=== PATIENT | female | born 1970 | race Caucasian/White ===

== ENCOUNTER 2016-10-13 19:25 | Emergency (ER) | payer MEDICAID ==
[2016-10-13 19:36] VITALS: TEMP 97.9
[2016-10-13] MEDS ORDERED: NS 1,000 ML IV ONE (20:19)
[2016-10-13] MEDS ORDERED: ONDANSETRON 4 MG/2 ML VIAL IVP ONE (20:19)
[2016-10-13] MEDS ORDERED: HYDROmorphONE/DILAUDID 1 MG/ML SYR IVP ONE (20:19)
--- NOTE | 2016-10-13 20:24 | EDPHY ---
H & P Stated Complaint: Nausea/vomiting, abdo pain since for months, getting worse Source: Patient Exam Limitations: No limitations - Personal History LMP (Females 10-55): 8-14 Days Ago Current Tetanus Diphtheria and Acellular Pertussis (TDAP): Unsure - Medical/Surgical History Hx Asthma: No Hx Chronic Respiratory Disease: No Hx Diabetes: No Hx Cardiac Disease: No Hx Renal Disease: No Hx Cirrhosis: No Hx Alcoholism: No Hx HIV/AIDS: No Hx Splenectomy or Spleen Trauma: No Other PMH: c section, ortho; B eye sx; tim; r knee;. idiopathic anaphylaxis - Family History Significant Family History: No pertinent family hx - Social History Smoking Status: Never smoked Alcohol Use: Sober Drug Use: None Time Seen by Provider: 10/13/16 20:09 HPI/ROS: CHIEF COMPLAINT: Abdominal pain HISTORY OF PRESENT ILLNESS: The patient is a 46-year-old female who comes to the emergency department complaining of abdominal pain and vomiting. She states that she has had chronic nausea and abdominal pain for the last year that she and her primary thought was most likely due to an allergic reaction. She had an unexplained anaphylactic reaction about a year ago prior to the initiation of these chronic symptoms. She has been treated with Pepcid and recently added Zantac and Zyrtec. This is not improved her symptoms infected last 45 days her pain and vomiting of become worse. She states that she is vomiting bile. No blood in her stool or vomit. She states that she typically has loose bowel movements sometimes they are formed. Never constipated. She has also been taking magnesium supplements. She has not seen a furnace installer. She also states that she can see her intestines peristalsing and it looks like an alien crawling across her stomach. REVIEW OF SYSTEMS: Constitutional: denies: chills, fever, recent illness, recent injury EENTM: denies: blurred vision, double vision, nose congestion Respiratory: denies: cough, shortness of breath Cardiac: denies: chest pain, irregular heart rate, lightheadedness, palpitations Gastrointestinal/Abdominal: See HPI Genitourinary: denies: dysuria, frequency, hematuria, pain Musculoskeletal: denies: joint pain, muscle pain Skin: denies: lesions, rash, jaundice, bruising Neurological: denies: headache, numbness, paresthesia, tingling, dizziness, weakness Hematologic/Lymphatic: denies: blood clots, easy bleeding, easy bruising Immunologic/allergic: denies: HIV/AIDS, transplant EXAM: GENERAL: Well-appearing, well-nourished and in no acute distress. HEAD: Atraumatic, normocephalic. EYES: Pupils equal round and reactive to light, extraocular movements intact, sclera anicteric, conjunctiva are normal. ENT: TMs normal, nares patent, oropharynx clear without exudates. Moist mucous membranes. NECK: Normal range of motion, supple without lymphadenopathy or JVD. LUNGS: Breath sounds clear to auscultation bilaterally and equal. No wheezes rales or rhonchi. HEART: Regular rate and rhythm without murmurs, rubs or gallops. ABDOMEN: Diffuse pain primarily in both upper quadrants, no tenderness. normoactive bowel sounds. No guarding, no rebound. No masses appreciated. BACK: No CVA tenderness, no spinal tenderness, step-offs or deformities EXTREMITIES: Normal range of motion, no pitting or edema. No clubbing or cyanosis. NEUROLOGICAL: Cranial nerves II through XII grossly intact. Normal speech, normal gait. 5/5 strength, normal movement in all extremities, normal sensation PSYCH: Normal mood, normal affect. SKIN: Warm, dry, normal turgor, no visible rashes or lesions. (Delta Medley) Constitutional: Initial Vital Signs Temperature (C) 36.6 C 10/13/16 19:33 Heart Rate 95 10/13/16 19:33 Respiratory Rate 18 10/13/16 19:33 Blood Pressure 126/76 H 10/13/16 19:33 O2 Sat (%) 96 10/13/16 19:33 O2 Delivery Mode Room Air Allergies/Adverse Reactions: Latex, Natural Rubber Allergy (Verified 08/04/15 13:26) venom-honey bee [bee venom (honey bee)] Allergy (Verified 08/04/15 13:26) Home Medications: Medication Instructions Recorded EPINEPHrine [Epipen] 0.3 mg IM ONCE PRN #2 syr 04/29/15 Montelukast Sodium 05/23/15 ZyrTEC 10 mg (RX) 05/23/15 EPINEPHrine [Epipen 0.3 MG (RX)] 0.3 mg IM ONCE #2 syr 06/08/15 Famitodine 08/04/15 Norgestimate-Ethinyl Estradiol 02/02/16 [Sprintec 28 Day Tablet] Hydrocodone/APAP 5/325 [[place] 1 - 2 each PO Q4 PRN #14 tab 10/13/16 5/325] Ondansetron Odt [Zofran Odt 4 mg 4 mg PO Q4 PRN #20 tab 10/13/16 (RX)] Medical Decision Making - Diagnostics EKG Interpretation: An EKG obtained and was read and documented in trace view. Please see trace view for full reading and report. Sinus rhythm no acute ischemic changes ( Delta Medley) Imaging: Results: CT scan of the abdomen and pelvis was obtained. The results of the study are normal appearing bowel, normal appearing appendix, left-sided ovarian cyst unchanged from previous. The study was read by Dr. Fajardo. I viewed the images myself on the PACS system. (Delta Medley) ED Course/Re-evaluation: 9:50 p.m. the patient is feeling much better although she is having some itching after receiving IV contrast. We discussed her CT results. She is reassured. Her ovarian cyst is the same as previous. She does not have any lower left quadrant pain. I will treat her with Benadryl and observed. Otherwise I will refer her to gastroenterology. She is happy with this plan and declines any further workup or testing at this time. (Delta Medley) Differential Diagnosis: Partial list of the Differential diagnosis considered include but were not limited to; ureteral bowel disease, chronic abdominal pain, vomiting, dehydration ovarian cyst, and although unlikely based on the history and physical exam, I also considered obstruction, ischemia, volvulus, ovarian torsion, appendicitis, kidney stones, urinary tract infection. I discussed these differential diagnoses and the plan with the patient as well as the usual and expected course. The patient understands that the diagnosis is provisional and that in medicine we are not always correct and that further workup is often warranted. Usual and customary warnings were given. All of the patient's questions were answered. The patient was instructed to return to the emergency department should the symptoms at all worsen or return, otherwise to followup with the physician as we discussed. (Delta Medley) Other Provider: On 10/14, I received a call from the pharmacy indicating that the patient was trying to fill her rx for [place] but had recently picked up a script for 60 [place] from a different provider only 4 days ago. I reviewed her chart and this is not listed. This seems like concerning behavior so I have asked pharmacist to discontinue our prescription. Patient may return to the ED if she is concerned about this. (Onel Roberts) - Data Points Laboratory Results: Laboratory Results 10/13/16 20:10 10/13/16 20:10 Medications Given: Discontinued Medications Diphenhydramine HCl (Benadryl Injection) 50 mg IVP EDNOW ONE Stop: 10/13/16 21:48 Last Admin: 10/13/16 21:57 Dose: 50 mg Hydromorphone HCl (Dilaudid) 1 mg IVP EDNOW ONE Stop: 10/13/16 20:20 Last Admin: 10/13/16 20:30 Dose: 1 mg Sodium Chloride (Ns) 1,000 mls @ 0 mls/hr IV ONCE ONE PRN Reason: Wide Open Stop: 10/13/16 20:20 Last Admin: 10/13/16 20:20 Dose: 1,000 mls Ondansetron HCl (Zofran) 4 mg IVP EDNOW ONE Stop: 10/13/16 20:20 Last Admin: 10/13/16 20:30 Dose: 4 mg Ondansetron HCl (Zofran Odt 4 Mg Prepack#2) 1 btl TAKEHOME EDNOW ONE Stop: 10/13/16 22:50 Last Admin: 10/13/16 22:51 Dose: 1 btl Departure - Departure Disposition: Home, Routine, Self-Care Clinical Impression: Abdominal pain Qualifiers: Abdominal location: generalized Qualified Code(s): R10.84 - Generalized abdominal pain Condition: Fair Instructions: Ondansetron (By mouth), Chronic Abdominal Pain (ED) Referrals: Phoebe Hilario [Primary Care Provider] - As per Instructions Prescriptions: Hydrocodone/APAP 5/325 [[place] 5/325] 1 - 2 each PO Q4 PRN #14 tab PRN Reason: Pain, Mild Ondansetron Odt [Zofran Odt 4 mg (RX)] 4 mg PO Q4 PRN #20 tab PRN Reason: Nausea & Vomiting
[2016-10-13 20:30] LABS: % IMMATURE GRANULYOCYTES 0.8 % (0.0-1.1); ABSOLUTE IMMATURE GRANULOCYTES 0.08 10^3/uL (0.00-0.10); ADD DIFF? NO; ADD MORPH? NO; ADD SCAN? NO; ATYPICAL LYMPHOCYTE FLAG 10 (0-99); FRAGMENT RBC FLAG 0 (0-99); HEMATOCRIT 41.3 % (38.0-47.0); LEFT SHIFT FLG 10 (0-99); LIPEMIA HEMOLYSIS FLAG 90 (0-99); MEAN CELL HEMOGLOBIN 28.2 pg (27.9-34.1); MEAN CELL HEMOGLOBIN CONCENTR. 33.9 g/dL (32.4-36.7); MEAN CELL VOLUME 83.1 fL (81.5-99.8); MEAN PLATELET VOLUME 10.5 fL (8.7-11.7); PLATELET CLUMPS FLAG 10 (0-99); PLATELET COUNT 232 10^3/uL (150-400); RED BLOOD CELL COUNT 4.97 10^6/uL (4.18-5.33); RED CELL DISTRIBUTION WIDTH 14.3 % (11.5-15.2)
[2016-10-13 20:40] LABS: ALANINE AMINOTRANSFERASE 38 IU/L (9-52); ALBUMIN 4.9 g/dL (3.5-5.0); ALKALINE PHOSPHATASE 73 IU/L (38-126); ANION GAP 17 mEq/L (8-16); ASPARTATE AMINOTRANSFERASE 30 IU/L (14-46); BILIRUBIN,TOTAL 1.3 mg/dL (0.1-1.4); BILIRUBIN-CONJUGATED 0.4 mg/dL (0.0-0.5); BILIRUBIN-UNCONJUGATED 0.9 mg/dL (0.0-1.1); CARBON DIOXIDE 19 mEq/l (22-31); CHLORIDE 104 mEq/L (97-110); CREATININE 0.8 mg/dL (0.6-1.0); GLOMERULAR FILTRATION RATE > 60; GLUCOSE 96 mg/dL (70-100); SODIUM 140 mEq/L (134-144); TOTAL PROTEIN 8.1 g/dL (6.3-8.2)
--- NOTE | 2016-10-13 20:45 | CPEKG ---
Heart Rate: 78 RR Interval: 769 P-R Interval: 144 QRSD Interval: 96 QT Interval: 400 QTC Interval: 456 P [place]: 45 QRS [place]: 16 T Wave [place]: 14 EKG Severity - NORMAL ECG - EKG Impression: SINUS RHYTHM Electronically Signed By: Delta Medley 13-Oct-2016 21:01:28
[2016-10-13] MEDS ORDERED: IOPAMIDOL (ISOVUE-300) 100 ML BTL IV ONE (20:50)
[2016-10-13] MEDS ORDERED: ONDANSETRON 4MG PREPACK#2 BTL TAKEHOME ONE (22:49)
[2016-10-13 22:54] VITALS: BP 116/65; PULSE 69; RESP 16; O2SAT 97
== END 2016-10-13 22:55 | disposition home or self-care (01) ==
DX: R10.84 Generalized abdominal pain (principal); Z91.040 Latex allergy status
CPT/HCPCS: 96374; J1170; J1200; J2405; Q9967